=== PATIENT | male | born 1950 | race Caucasian/White ===

== ENCOUNTER 2023-04-22 15:24 | Inpatient (IN) ==
[2023-04-22] MEDS ORDERED: TYLENOL PO PRN (15:55)
[2023-04-22] MEDS ORDERED: ATROPINE SULFATE PFS IVP PRN (15:55)
[2023-04-22] MEDS ORDERED: NITROSTAT SL PRN (15:55)
[2023-04-22] MEDS ORDERED: DEXTROSE 50%-WATER ABBOJECT IVP PRN (15:55)
[2023-04-22 16:00] VITALS: BMI 29.8
[2023-04-22] MEDS ORDERED: ZOFRAN 4 MG/2 ML IVP PRN (16:11)
[2023-04-22] MEDS ORDERED: ULTRAM PO PRN (16:29)
[2023-04-22] MEDS ORDERED: VALIUM PO PRN (16:29)
[2023-04-22] MEDS ORDERED: NON-FORMULARY MEDICATION (Fluticasone-Umeclidin-Vilanter [Trelegy Ellipta] 100-62.5-25 mcg IH SCH (16:30)
[2023-04-22] MEDS ORDERED: NON-FORMULARY MEDICATION (Tirzepatide [Mounjaro] 5 mg/0.5 mL pen injector) SUBCUT SCH (16:30)
[2023-04-22 16:35] LABS: ABG O2 HGB 92.2 % (95-100); BEecf 4.9 (-2.0-3.0); COHb 1.9 (0.5-1.5); HCO3 27.9 (21-28); MetHb 1.6 (0-1.5); sO2 94.4 % (94-98); tHb 16.3 g/dl (11.7-17.4)
[2023-04-22 16:42] LABS: ABG PH 7.51 (7.35-7.45)
[2023-04-22 16:42] LABS: BASOPHILS % (AUTO) 1.5 % (0.0-3.0); HEMATOCRIT 45.2 % (42.0-52.0); HEMOGLOBIN 15.5 g/dl (14.0-18.0); IMMATURE GRANULOCYTE % (AUTO) 0.5 % (0.0-5.0); LYMPHOCYTES # (AUTO) 0.3 K/uL (0.60-3.4); LYMPHOCYTES % (AUTO) 16.7 (10.0-50.0); MEAN CORPUSCULAR HEMOGLOBIN 28.4 pg (27.0-31.0); MEAN CORPUSCULAR HGB CONC 34.3 (31.8-35.4); MEAN CORPUSCULAR VOLUME 82.9 fl (80.0-94.0); MONOCYTES # (AUTO) 0.2 K/uL (0.4-2.0); MONOCYTES % (AUTO) 9.9 (0-10); NEUTROPHILS # (AUTO) 1.5 K/ul (2.0-6.9); NEUTROPHILS % (AUTO) 71.4 % (42.2-75.2); PLATELET COUNT 96 10^3/uL (140-440); RDW COEFFICIENT OF VARIATION 13.4 % (11.6-14.8); RED BLOOD COUNT 5.45 10^6/ul (4.70-6.10); WHITE BLOOD COUNT 2.03 K/ul (4.2-10.2)
--- NOTE | 2023-04-22 16:51 | DI ---
EXAM: FRONTAL AND LATERAL CHEST RADIOGRAPH(S). 2 VIEWS. History: Hypoxia Comparison: 10/13/2014 Findings / Impression: Heart size normal. No pleural effusion or pneumothorax. No focal airspace opac ification.
[2023-04-22] MEDS: ROCEPHIN 1 GM/50 ML D5W 1 GM/50 ML BAG IV SCH (16:57)
[2023-04-22] MEDS: SODIUM CHLORIDE 1,000 ML IV SCH (16:58)
[2023-04-22 17:37] LABS: TROPONIN I < 0.012 ng/ml (0.0000-0.120)
[2023-04-22 17:45] LABS: SARS COV-2 RNA RAPID NAAT NEGATIVE (NEGATIVE)
[2023-04-22] MEDS: TYLENOL PO PRN (17:50)
[2023-04-22] MEDS: DOXY-100 100 MG in SODIUM CHLORIDE 100ML 100 ML IV SCH ×2 (18:01→21:17)
[2023-04-22 19:05] LABS: BILIRUBIN,URINE Negative (NEGATIVE); CLARITY,URINE Clear (CLEAR); COLOR,URINE Yellow (YELLOW); GLUCOSE, URINE (UA) Negative (NEGATIVE); KETONES,URINE Negative (NEGATIVE); LEUKOCYTE ESTERASE ,URINE Negative (NEGATIVE); NITRITE,URINE Negative (NEGATIVE); PH,URINE 6.5 (5-9); PROTEIN,URINE Negative (NEGATIVE); URINE, BLOOD Trace-intact (NEGATIVE)
[2023-04-22 19:14] LABS: SQUAMOUS EPITHELIAL CELL,UR NOT PRESENT (0-5)
[2023-04-22 19:17] LABS: URINE RBC, MICROSCOPIC 0-2 (0-2); URINE WBC, MICROSCOPIC 0-2 (0-2)
[2023-04-22 19:18] LABS: BACTERIA,URINE TRACE (NOT PRESENT)
[2023-04-22] MEDS: SYMBICORT 160-4.5 MCG INHALER IH SCH (20:46)
[2023-04-22] MEDS: FLONASE NAS SCH (20:46)
[2023-04-22] MEDS ORDERED: K-DUR PO ONE (21:04)
[2023-04-23 00:35] LABS: CREATINE KINASE 122.5 U/L (55-170)
[2023-04-23 00:48] LABS: TROPONIN I < 0.012 ng/ml (0.0000-0.120)
[2023-04-23 00:51] LABS: CREATINE KINASE MB < 0.220 ng/ml (0.0-2.38)
[2023-04-23] MEDS: SODIUM CHLORIDE 1,000 ML IV SCH (04:57)
[2023-04-23 05:14] LABS: BASOPHILS % (AUTO) 2.4 % (0.0-3.0); EOSINOPHILS % (AUTO) 1.2 % (0.0-7.0); HEMATOCRIT 45.5 % (42.0-52.0); HEMOGLOBIN 15.2 g/dl (14.0-18.0); IMMATURE GRANULOCYTE % (AUTO) 0.6 % (0.0-5.0); LYMPHOCYTES # (AUTO) 0.6 K/uL (0.60-3.4); LYMPHOCYTES % (AUTO) 36.7 (10.0-50.0); MEAN CORPUSCULAR HEMOGLOBIN 28.4 pg (27.0-31.0); MEAN CORPUSCULAR HGB CONC 33.4 (31.8-35.4); MEAN CORPUSCULAR VOLUME 84.9 fl (80.0-94.0); MONOCYTES # (AUTO) 0.2 K/uL (0.4-2.0); MONOCYTES % (AUTO) 10.8 (0-10); NEUTROPHILS # (AUTO) 0.8 K/ul (2.0-6.9); NEUTROPHILS % (AUTO) 48.3 % (42.2-75.2); PLATELET COUNT 83 10^3/uL (140-440); RDW COEFFICIENT OF VARIATION 13.8 % (11.6-14.8); RED BLOOD COUNT 5.36 10^6/ul (4.70-6.10)
[2023-04-23 05:27] LABS: ALANINE AMINOTRANSFERASE 63.4 U/L (0-50); ALBUMIN 3.54 g/dL (3.5-5.0); ALKALINE PHOSPHATASE 44.4 U/L (56-119); ASPARTATE AMINO TRANSFERASE 117.1 U/L (17-59); BILIRUBIN,TOTAL 0.91 mg/dL (0.2-1.3); BLOOD UREA NITROGEN 13.1 mg/dL (9-20); CALCIUM 8.5 mg/dL (8.4-10.2); CARBON DIOXIDE 30.3 mmol/L (22-30.0); CHLORIDE 101.5 mmol/L (98-107); CREATININE 0.96 mg/dL (0.60-1.10); GLUCOSE 83.3 mg/dL (74-106); POTASSIUM 3.63 mmol/L (3.5-5.1); SODIUM 134.2 mmol/L (134.5-145); TOTAL PROTEIN 6.1 g/dL (6.3-8.2)
[2023-04-23 05:28] LABS: WHITE BLOOD COUNT 1.66 K/ul (4.2-10.2)
[2023-04-23] MEDS: SYNTHROID PO SCH ×2 (05:37→05:38)
[2023-04-23] MEDS ORDERED: BENICAR PO ONE (08:50)
[2023-04-23] MEDS ORDERED: XANAX PO SCH (09:00)
[2023-04-23] MEDS ORDERED: LEVOTHYROXINE 175 MCG PO SCH (09:00)
[2023-04-23] MEDS ORDERED: CRESTOR PO SCH (09:00)
[2023-04-23] MEDS ORDERED: TRIGLIDE PO SCH (09:00)
[2023-04-23] MEDS: METAMUCIL PO SCH (09:17)
[2023-04-23] MEDS: ENTRESTO 24 MG-26 MG TABLET PO SCH ×2 (09:19→20:40)
[2023-04-23] MEDS: K-DUR PO SCH ×2 (09:19→17:26)
[2023-04-23] MEDS: ANTIVERT PO SCH (09:20)
[2023-04-23] MEDS: PROSCAR PO SCH (09:20)
[2023-04-23] MEDS: SYMBICORT 160-4.5 MCG INHALER IH SCH ×2 (09:24→20:40)
[2023-04-23] MEDS: SPIRIVA IH SCH (09:24)
[2023-04-23] MEDS: FLONASE NAS SCH ×2 (09:24→20:40)
[2023-04-23] MEDS: DOXY-100 100 MG in SODIUM CHLORIDE 100ML 100 ML IV SCH ×2 (09:28→20:40)
[2023-04-23] MEDS ORDERED: NORVASC PO ONE (09:49)
[2023-04-23] MEDS ORDERED: HYDROCHLOROTHIAZIDE PO ONE (09:50)
[2023-04-23] MEDS: ZANAFLEX PO PRN ×2 (10:39→20:19)
[2023-04-23] MEDS: TORADOL IVP PRN ×2 (11:06→20:19)
[2023-04-23] MEDS: ROCEPHIN 1 GM/50 ML D5W 1 GM/50 ML BAG IV SCH (11:56)
[2023-04-23] MEDS: XANAX PO SCH (20:40)
[2023-04-24 05:11] LABS: BASOPHILS % (AUTO) 1.6 % (0.0-3.0); EOSINOPHILS # (AUTO) 0.1 K/ul (0.0-0.7); EOSINOPHILS % (AUTO) 4.9 % (0.0-7.0); HEMATOCRIT 42.7 % (42.0-52.0); HEMOGLOBIN 14.4 g/dl (14.0-18.0); IMMATURE GRANULOCYTE % (AUTO) 0.4 % (0.0-5.0); LYMPHOCYTES # (AUTO) 1.4 K/uL (0.60-3.4); LYMPHOCYTES % (AUTO) 57.8 (10.0-50.0); MEAN CORPUSCULAR HEMOGLOBIN 28.5 pg (27.0-31.0); MEAN CORPUSCULAR HGB CONC 33.7 (31.8-35.4); MEAN CORPUSCULAR VOLUME 84.6 fl (80.0-94.0); MONOCYTES # (AUTO) 0.3 K/uL (0.4-2.0); MONOCYTES % (AUTO) 13.1 (0-10); NEUTROPHILS # (AUTO) 0.5 K/ul (2.0-6.9); NEUTROPHILS % (AUTO) 22.2 % (42.2-75.2); PLATELET COUNT 83 10^3/uL (140-440); RDW COEFFICIENT OF VARIATION 13.9 % (11.6-14.8); RED BLOOD COUNT 5.05 10^6/ul (4.70-6.10); WHITE BLOOD COUNT 2.44 K/ul (4.2-10.2)
[2023-04-24 05:22] LABS: ALANINE AMINOTRANSFERASE 61.2 U/L (0-50); ALBUMIN 3.48 g/dL (3.5-5.0); ALKALINE PHOSPHATASE 58.3 U/L (56-119); BILIRUBIN,TOTAL 0.63 mg/dL (0.2-1.3); BLOOD UREA NITROGEN 13.7 mg/dL (9-20); CALCIUM 8.7 mg/dL (8.4-10.2); CARBON DIOXIDE 28.4 mmol/L (22-30.0); CHLORIDE 103.3 mmol/L (98-107); CREATININE 0.88 mg/dL (0.60-1.10); GLUCOSE 95.5 mg/dL (74-106); POTASSIUM 3.75 mmol/L (3.5-5.1); TOTAL PROTEIN 6.19 g/dL (6.3-8.2)
[2023-04-24] MEDS: TORADOL IVP PRN ×3 (05:29→23:24)
[2023-04-24] MEDS: SYNTHROID PO SCH ×2 (05:56)
[2023-04-24] MEDS: SYMBICORT 160-4.5 MCG INHALER IH SCH ×2 (08:05→20:14)
[2023-04-24] MEDS: ANTIVERT PO SCH (08:07)
[2023-04-24] MEDS: XANAX PO SCH ×2 (08:07→20:11)
[2023-04-24] MEDS: FLONASE NAS SCH ×2 (08:07→20:12)
[2023-04-24] MEDS: METAMUCIL PO SCH (08:07)
[2023-04-24] MEDS: K-DUR PO SCH ×2 (08:07→17:12)
[2023-04-24] MEDS: TYLENOL PO PRN (08:07)
[2023-04-24] MEDS: ENTRESTO 24 MG-26 MG TABLET PO SCH ×2 (08:08→20:11)
[2023-04-24] MEDS: NORVASC PO SCH (08:08)
[2023-04-24] MEDS: HYDROCHLOROTHIAZIDE PO SCH (08:08)
[2023-04-24] MEDS: BENICAR PO SCH (08:08)
[2023-04-24] MEDS: ROCEPHIN 1 GM/50 ML D5W 1 GM/50 ML BAG IV SCH (08:09)
[2023-04-24] MEDS: PROSCAR PO SCH (08:09)
[2023-04-24] MEDS: SPIRIVA IH SCH (08:13)
[2023-04-24] MEDS ORDERED: DECADRON IVP ONE (08:52)
[2023-04-24] MEDS ORDERED: OLMESARTAN AMLODIPIN HCTHIAZID PO SCH (09:00)
[2023-04-24] MEDS: FLOMAX PO SCH ×2 (09:16→20:11)
[2023-04-24] MEDS: DOXY-100 100 MG in SODIUM CHLORIDE 100ML 100 ML IV SCH ×2 (09:16→20:12)
[2023-04-24 11:13] LABS: PROSTATE SPECIFIC ANTIGEN SCRN 3.3 ng/mL (0.0-4.0)
--- NOTE | 2023-04-24 13:55 | CT ---
EXAM: CT HEAD WITH AND WITHOUT CONTRAST. HISTORY: Headache, dizziness. COMPARISON: None. TECHNIQUE: Multiple axial images of the brain were obtained from the skull base through the vertex p rior to and following intravenous administration of 50 mL Omnipaque 350, low osmolar. Multiplanar re formats were provided. FINDINGS: There is no intracranial hemorrhage or extraaxial collection. The payne-white differentiat ion is maintained without evidence for acute large vascular territory infarction. The cortical sulci and basal cisterns are well visualized. No areas of abnormal enhancement are identified. There is no hydrocephalus, mass effect, or midline shift. Complete opacification of the left maxillary sinus with some wall thickening. Small amount of mucus in the right maxillary sinus. Mild ethmoid sinus m ucosal thickening bilaterally. Some minimal mucosal thickening suggesting anterior right sphenoid si nus. Otherwise, the paranasal sinuses and mastoid air cells are clear. The calvarium is intact. IMPRESSION: 1. No acute intracranial abnormality. 2. Sinusitis, greatest in the left maxillary sinus with chronic features. All CT scans are performed using dose optimization techniques as appropriate to the performed exam an d include at least one of the following: Automated exposure control, adjustment of the mA and/or kV according t o size, and the use of iterative reconstruction technique.
[2023-04-24] MEDS: ZANAFLEX PO PRN (20:11)
[2023-04-25 04:46] LABS: BASOPHILS % (AUTO) 0.4 % (0.0-3.0); EOSINOPHILS % (AUTO) 0.6 % (0.0-7.0); HEMATOCRIT 42.1 % (42.0-52.0); HEMOGLOBIN 14.2 g/dl (14.0-18.0); IMMATURE GRANULOCYTE % (AUTO) 0.2 % (0.0-5.0); LYMPHOCYTES # (AUTO) 2.4 K/uL (0.60-3.4); LYMPHOCYTES % (AUTO) 44.6 (10.0-50.0); MEAN CORPUSCULAR HGB CONC 33.7 (31.8-35.4); MONOCYTES # (AUTO) 0.5 K/uL (0.4-2.0); MONOCYTES % (AUTO) 10.1 (0-10); NEUTROPHILS # (AUTO) 2.3 K/ul (2.0-6.9); NEUTROPHILS % (AUTO) 44.1 % (42.2-75.2); PLATELET COUNT 116 10^3/uL (140-440); RDW COEFFICIENT OF VARIATION 13.8 % (11.6-14.8); RED BLOOD COUNT 5.07 10^6/ul (4.70-6.10); WHITE BLOOD COUNT 5.27 K/ul (4.2-10.2)
[2023-04-25 04:58] LABS: ALANINE AMINOTRANSFERASE 56.8 U/L (0-50); ALBUMIN 3.64 g/dL (3.5-5.0); ALKALINE PHOSPHATASE 67.5 U/L (56-119); BILIRUBIN,TOTAL 0.53 mg/dL (0.2-1.3); BLOOD UREA NITROGEN 15.9 mg/dL (9-20); CALCIUM 9.07 mg/dL (8.4-10.2); CARBON DIOXIDE 24.7 mmol/L (22-30.0); CHLORIDE 105.4 mmol/L (98-107); CREATININE 0.82 mg/dL (0.60-1.10); GLUCOSE 121.6 mg/dL (74-106); POTASSIUM 3.91 mmol/L (3.5-5.1); SODIUM 135.4 mmol/L (134.5-145); TOTAL PROTEIN 6.31 g/dL (6.3-8.2)
[2023-04-25] MEDS: SYNTHROID PO SCH ×2 (06:08)
[2023-04-25] MEDS: METAMUCIL PO SCH (08:46)
[2023-04-25] MEDS: FLONASE NAS SCH (08:46)
[2023-04-25] MEDS: SPIRIVA IH SCH (08:46)
[2023-04-25] MEDS: SYMBICORT 160-4.5 MCG INHALER IH SCH (08:46)
[2023-04-25] MEDS: BENICAR PO SCH (08:47)
[2023-04-25] MEDS: ANTIVERT PO SCH (08:47)
[2023-04-25] MEDS: ROCEPHIN 1 GM/50 ML D5W 1 GM/50 ML BAG IV SCH (08:47)
[2023-04-25] MEDS: XANAX PO SCH (08:47)
[2023-04-25] MEDS: ENTRESTO 24 MG-26 MG TABLET PO SCH (08:47)
[2023-04-25] MEDS: PROSCAR PO SCH (08:48)
[2023-04-25] MEDS: NORVASC PO SCH (08:48)
[2023-04-25] MEDS: HYDROCHLOROTHIAZIDE PO SCH (08:48)
[2023-04-25] MEDS: K-DUR PO SCH (08:49)
[2023-04-25 09:07] VITALS: RESP 18
[2023-04-25] MEDS: DOXY-100 100 MG in SODIUM CHLORIDE 100ML 100 ML IV SCH (10:11)
[2023-04-25 10:13] VITALS: BP 135/80; PULSE 83; TEMP 96.3
[2023-04-25] MEDS ORDERED: ZYRTEC PO ONE (11:50)
[2023-04-25] MEDS ORDERED: PROTONIX PO ONE (11:50)
[2023-04-25] MEDS ORDERED: DECADRON IM ONE (11:50)
[2023-04-25] MEDS ORDERED: CLARITIN PO ONE (12:00)
[2023-04-26 11:20] LABS: IGG P18 AB Absent (.); IGG P23 AB Absent (.); IGG P28 AB Absent (.); IGG P30 AB Absent (.); IGG P39 AB Absent (.); IGG P41 AB Absent (.); IGG P45 AB Absent (.); IGG P58 AB Absent (.); IGG P66 AB Absent (.); IGG P93 AB Absent (.); IGM P23 AB Absent (.); IGM P39 AB Absent (.); IGM P41 AB Absent (.); LYME IGG WB INTERP Negative (.); LYME IGM WB INTERP Negative (.)
--- NOTE | 2023-04-28 08:13 | PN ---
DATE OF SERVICE: 04/23/23 SUBJECTIVE: 73 year old white male hospitalized with dehydration and history of fever for 3- 4 days duration, postoral hypotension with dizziness with history fall. She is feeling somewhat better. He is still running low grade fever. Appetite has improved some. Hydration status seems to have improved, skin turgor is a lot better. REVIEW OF SYSTEMS: CONSTITUTIONAL: No night sweats. Fatigue. No fever or chills. HEENT: Eyes: No visual changes. No eye pain. No eye discharge. ENT: No runny nose. No epistaxis. No sinus pain. No sore throat. No odynophagia. No congestion. RESPIRATORY: No cough, no congestion. No hemoptysis. No shortness of breath. CARDIOVASCULAR: No angina symptoms. No CHF symptoms. No atypical chest pain for CAD. No palpitations. No PND. No orthopnea. GASTROINTESTINAL: No abdominal pain. Nausea seems to be better. No diarrhea or constipation. No hematemesis. No hematochezia. GENITOURINARY: No urgency. No frequency. No dysuria. No hematuria. No obstructive symptoms. No discharge. No pain. No significant abnormal bleeding. MUSCULOSKELETAL: No musculoskeletal pain; no joint swelling. NEUROLOGICAL: No headache. No neck pain. No syncope. No seizures. No dizziness. PSYCHIATRIC: Not anxious. No depression. No suicidal thoughts. No homicidal thoughts. SKIN: No rash. No lesions. No wounds. ENDOCRINE: No unexplained weight loss. No weight gain. HEMATOLOGIC/LYMPHATIC: No anemia. No purpura. No petechiae. No prolonged or excessive bleeding. No palpable lymph nodes. PHYSICAL EXAMINATION: GENERAL: The patient is oriented to time, place and person. VITAL SIGNS: Temperature 99.3, pulse 90, respiratory rate 16, blood pressure 140/87 and pulse ox 98% on room air. HEENT: Head normocephalic, atraumatic. Eyes: Extraocular muscles are intact. Pupils are equal, round and reactive to light and accommodation. Ears: No lesions. Nose appeared normal. Throat: No exudate or erythema. NECK: Supple. No JVD, no carotid bruit. No lymphadenopathy or thyromegaly. LUNGS: Decreased breath sounds but clear to auscultation. Percussion note normal. Chest symmetrical. HEART: S1, S2, no S3. No murmurs. No cyanosis or clubbing. No ascites. Pulses: Dorsalis pedis and posterior tibial pulses +1 to +2 bilaterally. ABDOMEN: Soft. Nontender. Bowel sounds active. No CVA tenderness. No mass felt. EXTREMITIES: No edema. Full range of motion of all extremities, equal. NEUROLOGIC: No focal deficit. Cranial nerves II through XII are grossly intact. No headache. No double vision. SKIN: Not dry. Intact. Turgor - normal. LYMPHATIC: No palpable lymph nodes/no lymphedema. MUSCULOSKELETAL: Normal joints with no swelling. Muscle tone is normal. LABS: Hgb 15, hct 45, WBC 1,600, plt count 83,000, creatinine 0.9, BUN 13, potassium 3.6. AST 117 elevate than yesterday, ALT 63 slightly elevated from than yesterday. Leukopenia is more today. Plt count is gone down some. Leukocytes is more doubled. ASSESSMENT: 1. Fever, etiology unknown, could be viral versus Ehrlichia 2. Dehydration clinically has subsided 3. Rest of medical statuses are stable. No evidence of CHF or fluid overload PLAN: 1. Discontinue IV fluids 2. Discontinue Crestor 3. Discontinue Fenofibrate 4. Give Metamucil two tablets one 5. Benicar to be half the dose that he was taking 6. Restart Entresto TIME SPENT: More than 35 minutes. Plan and coordination of the patient's care discussed in the presence of nurse. UCHE
--- NOTE | 2023-04-28 13:13 | PN ---
DATE OF SERVICE: 04/24/23 SUBJECTIVE: 73 year old white male who was hospitalized with fever, dehydration, postural hypotension and dizziness. The patient's condition has steadily improved. He is still somewhat light headed and has headache with some dizziness. Appetite has improved some. Back pain still persists off and on. REVIEW OF SYSTEMS: CONSTITUTIONAL: No night sweats. No fatigue, malaise, lethargy. No fever or chills. HEENT: Eyes: No visual changes. No eye pain. No eye discharge. ENT: No runny nose. No epistaxis. No sinus pain. No sore throat. No odynophagia. No congestion. RESPIRATORY: No cough, no congestion. No hemoptysis. No shortness of breath. CARDIOVASCULAR: No angina symptoms. No CHF symptoms. No atypical chest pain for CAD. No palpitations. No PND. No orthopnea. GASTROINTESTINAL: Appetite has improved. No abdominal pain. No nausea or vomiting. No diarrhea or constipation. No hematemesis. No hematochezia. GENITOURINARY: No urgency. No frequency. No dysuria. No hematuria. No obstructive symptoms. No discharge. No pain. No significant abnormal bleeding. MUSCULOSKELETAL: No musculoskeletal pain; no joint swelling. Back pain. NEUROLOGICAL: No headache. No neck pain. No syncope. No seizures. No dizziness. PSYCHIATRIC: Not anxious. No depression. No suicidal thoughts. No homicidal thoughts. SKIN: No rash. No lesions. No wounds. ENDOCRINE: No unexplained weight loss. No weight gain. HEMATOLOGIC/LYMPHATIC: No anemia. No purpura. No petechiae. No prolonged or excessive bleeding. No palpable lymph nodes. PHYSICAL EXAMINATION: VITAL SIGNS: Temperature 96.4, pulse 80, respiratory rate 18, blood pressure 127/81 and pulse ox 95%. HEENT: Head normocephalic, atraumatic. Eyes: Extraocular muscles are intact. Pupils are equal, round and reactive to light and accommodation. Ears: No lesions. Nose appeared normal. Throat: No exudate or erythema. NECK: Supple. No JVD, no carotid bruit. No lymphadenopathy or thyromegaly. LUNGS: Decreased breath sounds but clear to auscultation. Percussion note normal. Chest symmetrical. HEART: S1, S2, no S3. No murmurs. No cyanosis or clubbing. No ascites. Pulses: Dorsalis pedis and posterior tibial pulses +1 to +2 bilaterally. ABDOMEN: Soft. Nontender. Bowel sounds active. No CVA tenderness. No mass felt. EXTREMITIES: No edema. Full range of motion of all extremities, equal. NEUROLOGIC: No focal deficit. Cranial nerves II through XII are grossly intact. No headache. No double vision. SKIN: Not dry. Intact. Turgor - normal. LYMPHATIC: No palpable lymph nodes/no lymphedema. MUSCULOSKELETAL: Normal joints with no swelling. Muscle tone is normal. LABS: Hgb 14, hct 42, WBC 2,400, lymphocytes 58%, neutrophil 22%. AST and ALT better than yesterday on 04/23/23 AST was 117 today 90. ALT was 63 on 04/23/23 and today it is 58. Protein and albumin low but coming up. ASSESSMENT: 1. Fever etiology likely could be viral and related to tick bite Ehrlichia 2. Dehydration with postural hypotension 3. Hypertrophic cardiomyopathy 4. Hypertension 5. Chronic lung disease PLAN: 1. Continue Tetracycline and Rocephin 2. Continue back pain treatment, Toradol as needed 3. 1cc Decadron today IM TIME SPENT: More than 35 minutes. Plan and coordination of the patient's care discussed in the presence of nurse. UCHE
--- NOTE | 2023-04-28 13:41 | DS ---
DATE OF SERVICE: 04/25/23 FINAL DIAGNOSIS: 1. Fever has resolved, likely etiology viral or Ehrlichia 2. Dehydration resolved 3. Postural hypotension resolved 4. Hypertrophy cardiomyopathy 5. Hypertension 6. Dyslipidemia 7. BPH 8. Hypothyroidism 9. 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 Resume medications. Followup on Friday. The patient is to be given 0.5 cc Decadron today and Zyrtec 10mg MEDICATIONS AT DISCHARGE: Benicar Rosuvastatin Xanax Tramadol Flonase Temazepam 2mg for dizziness as needed Entresto Fenofibrate Budesonide Formoterol HFA Symbicort Finasteride Levothyroxine NEW PRESCRIPTIONS: Doxycycline 100mg BID for 10 days Omnicef 300mg BID for 5 days HOSPITAL COURSE: 73 year old white male hospitalized with fever of nearly 3-4 days duration. The patient had evidence of dehydration with dry skin, had postural hypotension, severe dizziness with history of fall within past couple of days. The patient was hospitalized and given IV fluids first 48 hours. The patient was also started on IV Doxycycline and Rocephin. The patient required Toradol IV intermittently for his back pain because of his ability to adjust to the bed. The patient's appetite has improved. His hydration status is improved. CBC almost normalized. He had initially leukopenia and thrombocytopenia with lymphocytosis. The patient's cardiovascular status remained stable. Initially he had sinus tachycardia which has resolved. He is up and about with practically no dizziness. He was afebrile three days prior to discharge. Ehrlichia is still pending. TIME SPENT: 70 minutes MTDD
--- NOTE | 2023-04-28 13:42 | PN ---
ADMISSION DAY: LEVEL 5 REST OF THEM: INTERMEDIATE FINAL DAY: D IN DISCHARGE. MTDD
--- NOTE | 2023-04-28 13:43 | PN ---
DATE OF SERVICE: 04/25/23 SUBJECTIVE: 73 year old white male hospitalized with fever and chills, fatigue, dehydration and postural hypotension. The patient's condition has improved. His fever has resolved, appetite has improved and he is feeling a lot better today. REVIEW OF SYSTEMS: CONSTITUTIONAL: No night sweats. Mild fatigue. No fever or chills. HEENT: Eyes: No visual changes. No eye pain. No eye discharge. ENT: No runny nose. No epistaxis. No sinus pain. No sore throat. No odynophagia. No congestion. RESPIRATORY: No cough, no congestion. No hemoptysis. No shortness of breath. Some sinus problems still persists. CARDIOVASCULAR: No angina symptoms. No CHF symptoms. No atypical chest pain for CAD. No palpitations. No PND. No orthopnea. GASTROINTESTINAL: No abdominal pain. No nausea or vomiting. No diarrhea or constipation. No hematemesis. No hematochezia. GENITOURINARY: No urgency. No frequency. No dysuria. No hematuria. No obstructive symptoms. No discharge. No pain. No significant abnormal bleeding. MUSCULOSKELETAL: No musculoskeletal pain; no joint swelling. Back pain is very mild. NEUROLOGICAL: No headache. No neck pain. No syncope. No seizures. No dizziness. PSYCHIATRIC: Not anxious. No depression. No suicidal thoughts. No homicidal thoughts. SKIN: No rash. No lesions. No wounds. ENDOCRINE: No unexplained weight loss. No weight gain. HEMATOLOGIC/LYMPHATIC: No anemia. No purpura. No petechiae. No prolonged or excessive bleeding. No palpable lymph nodes. PHYSICAL EXAMINATION: GENERAL: The patient is oriented to time, place and person. VITAL SIGNS: Temperature 98.5, pulse 70, respiratory rate 16, blood pressure 122/78 and pulse ox 98%. HEENT: Head normocephalic, atraumatic. Eyes: Extraocular muscles are intact. Pupils are equal, round and reactive to light and accommodation. Ears: No lesions. Nose appeared normal. Throat: No exudate or erythema. NECK: Supple. No JVD, no carotid bruit. No lymphadenopathy or thyromegaly. LUNGS: Decreased breath sounds but Clear to auscultation. Percussion note normal. Chest symmetrical. HEART: S1, S2, no S3. No murmurs. No cyanosis or clubbing. No ascites. Pulses: Dorsalis pedis and posterior tibial pulses +1 to +2 bilaterally. ABDOMEN: Soft. Nontender. Bowel sounds active. No CVA tenderness. No mass felt. EXTREMITIES: No edema. Full range of motion of all extremities, equal. NEUROLOGIC: No focal deficit. Cranial nerves II through XII are grossly intact. No headache. No double vision. SKIN: Not dry. Intact. Turgor - normal. LYMPHATIC: No palpable lymph nodes/no lymphedema. MUSCULOSKELETAL: Normal joints with no swelling. Muscle tone is normal. LABS: Hgb 14.2, hct 42, WBC 5,200 normal differential, creatinine 0.8, BUN 15, potassium 3.9. AST and ALT 656 respectively better than yesterday. ASSESSMENT: 1. Fever has resolved, likely etiology viral or Ehrlichia 2. Dehydration resolved 3. Postural hypotension resolved 4. Hypertrophy cardiomyopathy 5. Hypertension 6. Dyslipidemia 7. BPH 8. Hypothyroidism 9. 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 Discharge the patient home 2. Restart all the previous medications as before; that is Benicar, Rosuvastatin, Xanax, Tramadol, Flonase, Temazepam 2mg for dizziness as needed, Entresto, Fenofibrate, Budesonide, Formoterol, HFA Symbicort, Finasteride, Levothyroxine 3. Followup on Friday 4. Doxycycline 100mg BID for 10 days. 5. Omnicef 300mg BID for 5 days 6. Instruction to come back on Friday 1:30pm 7. The patient is to be given 0.5 cc Decadron today and Zyrtec 10mg CONDITION: Stable. TIME SPENT: More than 35 minutes. Plan and coordination of the patient's care discussed in the presence of nurse. UCHE
--- NOTE | 2023-04-29 13:02 | HP ---
DATE OF SERVICE: 04/22/23 REASON FOR HOSPITALIZATION/HISTORY OF PRESENT ILLNESS: Fever 102 last night, chills, headache and achy. PAST MEDICAL HISTORY/PAST SURGICAL HISTORY: History of elevated PSA-MRI negative, biopsy not done Dilated Hypertrophic cardiomyopathy Mild COPD Hypertension Dyslipidemia Hypothyroidism Diabetes Mellitus type II Obstructive sleep apnea Metabolic syndrome Status post cholecystectomy Colon polyps Family history of heart disease Obesity REVIEW OF SYSTEMS: CONSTITUTIONAL: Fever, Fatigue. HEENT: No sinus drainage, no sore throat. Dry mucous membranes. RESPIRATORY: No cough, no congestion. CARDIOVASCULAR: No atypical chest pain for coronary artery disease. No angina, CHF symptoms, palpitations or shortness of breath. GASTROINTESTINAL: No melena or abdominal pain. No GERD. GENITOURINARY: No hematuria, no prostatism, no polyuria. SORTER UPHOLSTERY PARTS: Blackout, Dizziness, no headache, no double vision. MUSCULOSKELETAL: No osteoarthritis pain, no joint swelling. ENDOCRINE: Weight loss 20 pounds. , no weight gain. SKIN: Not dry, no rash. PSYCHIATRIC: Not anxious, no depression, no suicidal thoughts, no homicidal thoughts. SOCIAL HISTORY: Marital Status: . Tobacco Usage: No. MEDICATIONS: Alprazolam Diazepam Fenofibrate Fluticasone propionate Trelegy Ellipta Levothyroxine Meclizine Olmesartan-Hold Rosuvastatin Sacubitril-Hold Tirzepatide Tramadol Valium PHYSICAL EXAMINATION: V/S: Pulse 118, blood pressure 122/80, temperature 99.4 and oxygen saturation 95%. GENERAL APPEARANCE: Oriented times three. HEENT: Normal. NECK: No JVP, no bruits. RESPIRATORY: Decreased breath sounds. CARDIOVASCULAR: S1, S2, no S3, no murmur. Tachy. No cyanosis, clubbing. No ascites. GI/ABDOMEN: No tenderness. Bowel sounds are active. EXTREMITIES: edema, pulses +1, equal. SORTER UPHOLSTERY PARTS: Deep tendon reflexes, sensory, motor and gait all normal. RECTAL: 01/25 Fany/PROSTATE: Mason follows ASSESSMENT: 1. Dehydration 2. Fever of unknown origin 3. Postural hypotension 4. History of elevated PSA-MRI negative, biopsy not done 5. Dilated Hypertrophic cardiomyopathy 6. Mild COPD 7. Hypertension 8. Dyslipidemia 9. Hypothyroidism 10.Diabetes Mellitus type II 11.Obstructive sleep apnea 12.Metabolic syndrome 13.Status post cholecystectomy 14.Colon polyps 15.Family history of heart disease 16.Obesity PLAN: 1. Routine telemetry orders 2. Lactic acid 3. Procalcitonin 4. CBC and CMP today and daily 5. ABG on room air times one 6. Blood cultures times two 7. [place] spotted fever 8. Ehrlichia 9. Lyme Titer 10. Urinalysis 11. Zofran 5mg IV Q 6 hours PRN 12. Chest x-ray 13. Normal saline IV at 100cc an hour 14. Rocephin 1 gram IV daily 15. Doxycycline 100mg IV Q 12 hours 16. PSA 17. Urine culture 18. T4 TSH 19. Hold Entresto and Tribenzor TIME SPENT: More than 75 minutes. MTDD
--- NOTE | 2023-04-29 13:58 | DS ---
DATE OF SERVICE: 04/25/23 FINAL DIAGNOSIS: 1. Fever etiology maybe viral versus ehrlichia, labs pending 2. Dehydration 3. Postural hypotension secondary to dehydration with dizziness 4. Abnormal liver enzymes likely from infectious process 5. History of dilated cardiomyopathy 6. Hypertension 7. Dyslipidemia 8. Hypothyroidism 9. Dyslipidemia 10.Hypertension 11.Chronic lung disease 12.BPH 13.DJD of the spine. DISCHARGE INSTRUCTIONS: Discharge home. Followup in 3-4 days. NEW PRESCRIPTIONS: Doxycycline Omnicef LABS: Hgb 14, hct 42, WBC 5,200, plt count 116,000, BUN 15, glucose 121, potassium 3.9. AST 76, ALT 56, leukocyte 44%, Neutrophil is 44%, HOSPITAL COURSE: 73 year old white male was seen in the office with having fever of 4 days duration. Fever as high as 102. The patient had headache, dizzy, postural hypotension was obvious and appetite was poor. Hospitalized and given IV fluids for 36 hours. He was started on Tetracycline IV, Doxycycline IV 100mg Q 12, Rocephin 1 gram Q 24 hours. The patient initially had leukopenia, thrombocytopenia. Lymphocytosis was noted. At the time that he was discharged home his WBC was normal, plt count had come up to 116,000. The patient very likely had infection with some inflammation with abnormal AST and ALT from viruses or tick related illness like Ehrlichia. Ehrlichia which was pending. [place] Spotted fever test negative. The patient's appetite was poor on admission but fairly good at the time of discharge. The patient was up and about, felt a lot better. Intermittent headache was treated with Decadron, allergic sinusitis type of symptoms. Pain was treated with Toradol At the time of discharge the patient's appetite had improved. He was oriented to time, place and person. He was up and about , no nuchal rigidity was present. He was afebrile. There was never lymphadenopathy or rash. The patient is to be followed in 3-4 days. He was discharged on Doxycycline to be taken for 10 days and Omnicef to be taken for 5 days. CONDITION: Stable. TIME SPENT: 70 minutes MTDD
== END 2023-04-25 14:21 | disposition home or self-care (01) | DRG 641 ==
LOC: MEDSURG B 15:24
PROVIDERS: ADMIT Internal Medicine; ATTEND Internal Medicine